=== PATIENT | male | born 1960 | race Caucasian/White ===

== ENCOUNTER 2024-05-17 17:50 | Emergency (ER) | payer MEDICAID ==
[~2024-05-17] VITALS: Ht 175.3 cm; Wt 74.8 kg
[2024-05-17 18:45] VITALS: BP 190/88; PULSE 72; RESP 18; TEMP 98.1; O2SAT 100
[2024-05-17] MEDS ORDERED: MORPHINE SULFATE 4 MG/ML SYR IVP ONE (19:00)
[2024-05-17 19:30] VITALS: O2SAT 96
[2024-05-17 19:30] LABS: BASOPHILS # (AUTO) 0.1 K/uL (0.00-0.22); BASOPHILS % (AUTO) 0.4 % (0.0-2.0); EOSINOPHILS % (AUTO) 0.2 % (0.0-4.0); HEMATOCRIT 43.3 % (36-52); HEMOGLOBIN 14.5 g/dL (12.0-18.0); LYMPHOCYTES # (AUTO) 0.7 K/uL (2.0-11.5); LYMPHOCYTES % (AUTO) 4.9 % (20.5-51.1); MEAN CORPUSCULAR HEMOGLOBIN 32 pg (27-31); MEAN CORPUSCULAR HGB CONC 34 g/dL (33-37); MEAN CORPUSCULAR VOLUME 95.2 fL (80-94); MONOCYTES # (AUTO) 0.5 K/uL (0.8-1.0); MONOCYTES % (AUTO) 3.4 % (1.7-9.3); NEUTROPHILS # (AUTO) 12.8 K/uL (1.8-7.7); NEUTROPHILS % (AUTO) 91.1 % (42.2-75.2); PLATELET COUNT (AUTO) 221 K/uL (140-450); RED BLOOD CELL COUNT(AUTO) 4.55 MIL/uL (4.20-6.10); RED CELL DISTRIBUTION WIDTH 13.4 % (11.6-13.7); WHITE BLOOD COUNT (AUTO) 14.1 K/uL (4.8-10.8)
[2024-05-17 19:37] LABS: ANION GAP 16.3 (8-16); CALCIUM 9.4 mg/dL (8.5-10.1); CARBON DIOXIDE 24.9 mmol/L (21-32); CREATININE 1.5 mg/dL (0.6-1.3); POTASSIUM 4.2 mmol/L (3.5-5.1)
[2024-05-17 19:44] LABS: ALBUMIN 4.1 g/dL (3.4-5.0); BILIRUBIN,DIRECT 0.2 mg/dL (0.0-0.3); TOTAL BILIRUBIN 0.9 mg/dL (0.0-1.0); TOTAL PROTEIN, SERUM 7.7 g/dL (6.4-8.2)
[2024-05-17] MEDS: NACL 0.9% 1,000 ML IV ONE (19:54)
[2024-05-17] MEDS: ONDANSETRON 4 MG/2 ML VIAL IVP ONE (19:57)
[2024-05-17] MEDS: ACETAMINOPHEN EXTRA STRENGTH 500 MG TAB PO ONE (20:15)
[2024-05-17 21:57] LABS: APPEARANCE,URINE CLEAR (CLEAR); BILIRUBIN,URINE NEGATIVE (NEGATIVE); BLOOD, URINE 2+ (NEGATIVE); COLOR,URINE YELLOW (YELLOW); LEUKOCYTE ESTERASE ,URINE NEGATIVE (NEGATIVE); NITRITE, URINE NEGATIVE (NEGATIVE); PH,URINE 6.5 (5.0-9.0); PROTEIN,URINE NEGATIVE (NEGATIVE); UGLUCOSE NEGATIVE (NEGATIVE); UROBILINOGEN,URINE 0.2 EU/dL (0.2 - 1)
[2024-05-17 22:47] VITALS: O2SAT 98
[2024-05-17] MEDS ORDERED: ONDA-188 SL (23:01)
[2024-05-17] MEDS ORDERED: IBUP-2213 PO (23:01)
[2024-05-17] MEDS ORDERED: TAMS0.4C96 PO (23:01)
[2024-05-17] MEDS ORDERED: ACET-10509 PO (23:01)
[2024-05-17 23:04] VITALS: BP 177/87; RESP 17; TEMP 98.7; O2SAT 98
[2024-05-17 23:11] VITALS: PULSE 54
== END 2024-05-17 23:04 | disposition home or self-care (01) ==
LOC: MED 17:50
DX: N20.0 Calculus of kidney (principal); R03.0 Elevated blood-pressure reading, without diagnosis of hypertension; Z79.899 Other long term (current) drug therapy
CPT/HCPCS: 36415; 74177; 80048; 80076; 81003; 83605; 83690; 85025; 87040; 96361; 96374; 99285; J2405; J7030; Q9967; J2270